=== PATIENT | female | born 1950 | race African-American/Black ===

== ENCOUNTER 2016-07-09 12:59 | Emergency (ER) | payer MEDICARE, OTHER ==
[2016-07-09 14:11] VITALS: RESP 18
[2016-07-09] MEDS ORDERED: cloNIDine HCL 0.1 MG TAB PO STA (14:20)
[2016-07-09] MEDS ORDERED: SODIUM CHLORIDE 0.9% 1,000 ML IV STA (14:22)
[2016-07-09] MEDS ORDERED: HYDROmorphone 1 MG/ML 1 ML SYRINGE IM STA (15:02)
[2016-07-09] MEDS ORDERED: PROMETHAZINE 25 MG TAB PO STA (15:02)
[2016-07-09 15:41] LABS: Basophils % (A) 1 %; CH 31.9; CHCM 35.6; Eosinophils # (A) 0.1 k/uL (0-0.7); Eosinophils % (A) 2 %; HCT 37.3 % (34.0-46.0); HDW 2.47; HGB 12.8 gm/dL (11.4-16.0); Luc % (Auto) 3; Lymphocytes # (A) 1.8 k/uL (1.0-4.8); Lymphocytes % (A) 48 %; MCH 30.8 pg (25.0-35.0); MCHC 34.2 g/dL (31.0-37.0); MCV 90.1 fL (80.0-100.0); Mean Platelet Volume 7.5; Monocytes # (A) 0.2 k/uL (0-1.0); Monocytes % (A) 4 %; Neutrophils # (A) 1.6 k/uL (1.3-7.7); Neutrophils % (A) 42 %; RBC 4.14 m/uL (3.80-5.40); RDW 14.5 % (11.5-15.5); WBC 3.8 k/uL (3.8-10.6); WBC (Perox) 3.89
--- NOTE | 2016-07-09 16:20 | ED ---
General Adult HPI - General Chief complaint: Recheck/Abnormal Lab/Rx Stated complaint: Hypertension Time Seen by Provider: 07/09/16 14:12 Source: patient, family, RN notes reviewed Mode of arrival: ambulatory Limitations: no limitations - History of Present Illness Initial comments: Chief complaint and history of present illness this is a 66-year-old female here with complaint of headache. The patient reports having headache for 4 days. Yesterday she went to a dentist and they're the blood pressure was elevated 191/111. She was told to come to the hospital or see her doctor. She waited over 24 hours to come in. Upon arrival to emergency room blood pressure was 242/101. She was given Catapres 0.2 by mouth. This worked well after approximately 2 hours the blood pressure came down to systolic 116. Headache is gone. Patient denying any neuro deficits that she did not have previously. - Related Data Home Medications Medication Instructions Recorded Confirmed Albuterol Sulfate [Proventil Hfa] 2 puff INHALATION RT-Q6H PRN 07/09/16 07/09/16 Amitriptyline HCl [Elavil] 25 mg PO HS 07/09/16 07/09/16 Aspirin 81 mg PO DAILY 07/09/16 07/09/16 Baclofen (Unknown Dose) 1 tab PO DIRECTED 07/09/16 07/09/16 Cholecalciferol [Vitamin D3] 5,000 unit PO DAILY 07/09/16 07/09/16 EPINEPHrine (Auto Inject) [Epipen] 0.3 mg IM ONCE PRN 07/09/16 07/09/16 Hydrocodone/Acetaminophen [Mullins 1 tab PO Q6H PRN 07/09/16 07/09/16 10-325 Tablet] Ibuprofen [Motrin] 800 mg PO BID PRN 07/09/16 07/09/16 L. Rhamnosus GG/Inulin [Culturelle 1 tab PO DAILY 07/09/16 07/09/16 Chewable Tablet] Losartan Potassium [Cozaar] 100 mg PO DAILY 07/09/16 07/09/16 Montelukast [Singulair] 10 mg PO HS 07/09/16 07/09/16 Multivitamins, Thera [Multivitamin 1 tab PO DAILY 07/09/16 07/09/16 (formulary)] Pravastatin Sodium [Pravachol] 20 mg PO DAILY 07/09/16 07/09/16 Primidone [Mysoline] 250 mg PO BID@0900,1700 07/09/16 07/09/16 Propranolol [Inderal] 10 mg PO DAILY 07/09/16 07/09/16 Allergies Allergy/AdvReac Type Severity Reaction Status Date / Time adhesive Allergy Rash/Hives Verified 07/09/16 14:44 bee pollen Allergy Rash/Hives Verified 07/09/16 14:44 doxycycline [From Vibramycin] Allergy Dyspnea Verified 07/09/16 14:44 Iodinated Contrast Media - Allergy Nausea & Verified 07/09/16 14:44 Oral and Vomiting ketorolac [From Toradol] Allergy Nausea & Verified 07/09/16 14:44 Vomiting shellfish derived [Shellfish] Allergy Anaphylaxis Verified 07/09/16 14:44 Sulfa (Sulfonamide Allergy Dyspnea Verified 07/09/16 14:44 Antibiotics) vancomycin Allergy Dyspnea Verified 07/09/16 14:44 venom-honey bee Allergy Unknown Verified 07/09/16 14:44 tape Allergy Rash/Hives Uncoded 07/09/16 13:48 Review of Systems ROS Statement: Those systems with pertinent positive or pertinent negative responses have been documented in the HPI. Review of systems mild headache. No visual acuity changes she has chronic neck pain she has had back surgery and surgical hardware. No chest pain palpitations shortness of breath no GI/ complications. She has had 2 previous strokes have left the left side slightly weaker than the right. She states that is unchanged today. All systems reviewed. Past medical problems asthma, breast cancer in 012 strokes, hyperlipidemia hypertension and neuropathy. The patient's surgeries as noted above breast surgery, heart catheterization with a stent placed. He's had neck surgery for disks. Family history mother colon cancer. She does get her colonoscopies regularly. Patient has ALLERGIES to bee pollen, doxycycline, iodinated contrast material, oral and IV. Ketorolac, shellfish. Nonsmoker nondrinker ROS Other: All systems not noted in ROS Statement are negative. Past Medical History Past Medical History: Asthma, Cancer, CVA/TIA, Hyperlipidemia, Hypertension Additional Past Medical History / Comment(s): neuropathy,stenosis,chronic neck and back History of Any Multi-Drug Resistant Organisms: MRSA Date of last positivie culture/infection: 2014 MDRO Source:: face Past Surgical History: Breast Surgery, Heart Catheterization With Stent Additional Past Surgical History / Comment(s): neck surgery,venious stripping, lt axillary nodules, "metal clips to breast" Past Psychological History: No Psychological Hx Reported Smoking Status: Never smoker Past Alcohol Use History: None Reported Past Drug Use History: None Reported General Exam - General Exam Comments Initial Comments: General: The patient is awake and alert, in no distress, and does not appear acutely ill. Complaining of a four-day headache. Elevated blood pressure. Vital signs temp 97.4 pulse 81 respiratory rate 18 pulse ox on percent room air blood pressure 242/101. Eye: Pupils are equal, round and reactive to light, extra-ocular movements are intact ; there is normal conjunctiva bilaterally. No signs of icterus. Ears, nose, mouth and throat: There are moist mucous membranes and no oral lesions. Neck: Patient has chronic neck pain. No significant change with flexion or extension. She has had surgery with fusion. She states is no worse than normal she is on occasions include Mullins and OxyContin at home for this same neck pain. Cardiovascular: There is a regular rate and rhythm. No murmur, rub or gallop is appreciated. Respiratory: Lungs are clear to auscultation, respirations are non-labored, breath sounds are equal. No wheezes, stridor, rales, or rhonchi. Gastrointestinal: Soft, non-distended, non-tender abdomen without masses or organomegaly noted. There is no rebound or guarding present. No CVA tenderness. Bowel sounds are unremarkable. Back: There is no tenderness to palpation in the midline. There is no obvious deformity. No rashes noted. Musculoskeletal: Normal ROM, no tenderness, There is no pedal edema. There is no calf tenderness or swelling. Sensation intact. Pulses equal bilaterally 2+. Neurological: Neurologically patient has questions appropriately. Alert and oriented. Neurological examination finds drift and slight weakness on the left arm left leg which patient reports occurred is a remnant from one of the 2 previous stroke she had years ago. No new deficits or weaknesses. Skin: Skin is warm and dry and no rashes or lesions are noted. Limitations: no limitations Course Vital Signs 07/09/16 07/09/16 07/09/16 13:42 14:04 15:06 Temperature 97.4 F L Pulse Rate 67 81 81 Respiratory 20 18 Rate Blood Pressure 217/98 242/101 173/86 O2 Sat by Pulse 100 100 98 Oximetry 07/09/16 16:08 Temperature Pulse Rate 86 Respiratory 18 Rate Blood Pressure 132/68 O2 Sat by Pulse 98 Oximetry Medical Decision Making - Medical Decision Making Medical decision-making. The patient's labs show white count of 3 hemoglobin 12.8 hematocrit 37. Patient was given Catapres 0.2 by mouth. Frequent repeat blood pressure checks part of discharge, blood pressure to come down steadily. On discharge was 113 systolic. Patient denies any headache. She still has her chronic neck pain for which she takes pain medications at home. Also advised to use hot showers alternating with ice packs to the left trapezius muscle. No evidence of meningismus or stiff neck with flexion. Patient states she's comfortable wants to go home and follow-up with family physician. Warned that if she gets a headache to suspect blood pressure problems and return emergency room. The patient waited 4 days with this headache prior to coming to emergency room and she came she states because of dental visit yesterday found her blood pressure to 191/111. - Lab Data Result diagrams: 07/09/16 15:20 Lab Results 07/09/16 Range/Units 15:20 WBC 3.8 (3.8-10.6) k/uL RBC 4.14 (3.80-5.40) m/uL Hgb 12.8 (11.4-16.0) gm/dL Hct 37.3 (34.0-46.0) % MCV 90.1 (80.0-100.0) fL MCH 30.8 (25.0-35.0) pg MCHC 34.2 (31.0-37.0) g/dL RDW 14.5 (11.5-15.5) % Plt Count 183 (150-450) k/uL Neutrophils % 42 % Lymphocytes % 48 % Monocytes % 4 % Eosinophils % 2 % Basophils % 1 % Neutrophils # 1.6 (1.3-7.7) k/uL Lymphocytes # 1.8 (1.0-4.8) k/uL Monocytes # 0.2 (0-1.0) k/uL Eosinophils # 0.1 (0-0.7) k/uL Basophils # 0.0 (0-0.2) k/uL Disposition Clinical Impression: Hypertension Disposition: HOME SELF-CARE Condition: Fair Instructions: Hypertension (ED) Additional Instructions: Take medications as directed. Follow-up with family physician for recheck. If he develop headache return emergency room. Referrals: Rasheed Rodriguez MD [Primary Care Provider] - 1-2 days Time of Disposition: 16:19
[2016-07-09 16:24] VITALS: BP 116/72; PULSE 59; TEMP 98.1
[2016-07-09 16:25] LABS: ALT <6 U/L (9-52); AST 61 U/L (14-36); Alkaline Phosphatase 171 U/L (38-126); Anion Gap 7 mmol/L; Blood Urea Nitrogen 12 mg/dL (7-17); Carbon Dioxide 24 mmol/L (22-30); Chloride 109 mmol/L (98-107); Glucose 90 mg/dL (74-99); Non-African American GFR(MDRD) >60 (>60 ml/min/1.73 sqM); Sodium 140 mmol/L (137-145); Total Bilirubin 1.6 mg/dL (0.2-1.3); Total Protein 7.2 g/dL (6.3-8.2)
== END 2016-07-09 16:24 | disposition home or self-care (01) ==
LOC: EC 12:59
DX: I10 Essential (primary) hypertension (principal); R51 Headache; E78.5 Hyperlipidemia, unspecified; G62.9 Polyneuropathy, unspecified; Z86.73 Personal history of transient ischemic attack (TIA), and cerebral infarction without residual deficits; Z85.3 Personal history of malignant neoplasm of breast; Z79.82 Long term (current) use of aspirin; Z79.899 Other long term (current) drug therapy; Z91.030 Bee allergy status; Z88.1 Allergy status to other antibiotic agents; Z88.2 Allergy status to sulfonamides; Z91.041 Radiographic dye allergy status; Z88.6 Allergy status to analgesic agent; Z91.048 Other nonmedicinal substance allergy status
CPT/HCPCS: 36415; 80053; 85025; 99283; 96372; J1170